=== PATIENT | female | born 1965 | race Hispanic/Latino ===

== ENCOUNTER 2021-07-17 07:22 | Day surgery (SDC) | payer OTHER ==
[2021-07-14 14:13] LABS: BASOPHILS % (AUTO) 0.7 % (0.0-5.0); EOSINOPHILS % (AUTO) 2.3 % (0.0-8.0); HEMATOCRIT 45.1 % (36-48); LYMPHOCYTES % (AUTO) 27.2 % (21.0-51.0); MEAN CORPUSCULAR HEMOGLOBIN 27.6 pg (27.0-33.0); MEAN CORPUSCULAR HGB CONC 31.3 g/dL (32.0-36.0); MEAN CORPUSCULAR VOLUME 88.4 fL (79-99); MONOCYTES % (AUTO) 6.7 % (3.0-13.0); NEUTROPHILS % (AUTO) 62.7 % (40.0-77.0); PLATELET COUNT (AUTO) 429 K/uL (130-400); RED CELL DISTRIBUTION WIDTH 14.1 % (11.0-15.5); WHITE BLOOD COUNT (AUTO) 10.9 K/uL (4.8-10.8)
[2021-07-16 13:02] VITALS: BP 164/78
[2021-07-17] VITALS (17 sets, daily range): BP systolic 140–175; BP diastolic 80–106
[~2021-07-17] VITALS: Ht 157.5 cm; Wt 102.4 kg
[~2021-07-17 07:22] MED LIST: CELE-84 PO; LEVO5TAB13 PO
[2021-07-17] MEDS ORDERED: CALDOLOR 800MG+NS 250ML 250 ML IV ONE (07:38)
[2021-07-17] MEDS ORDERED: L.AC1CAP6 PO (07:50)
[2021-07-17] MEDS ORDERED: CEFAZOLIN SODIUM 1 GM VIAL ONE (08:26)
[2021-07-17] MEDS ORDERED: PROPOFOL 10 MG/ML 20ML VIAL IV ONE (08:34)
[2021-07-17] MEDS ORDERED: LIDOCAINE PF 100MG/5ML (2%) SYRINGE 5ML ONE (08:34)
[2021-07-17] MEDS ORDERED: SUCCINYLCHOLINE 200MG/10ML SYR ONE (08:34)
[2021-07-17] MEDS ORDERED: MIDAZOLAM HCL 1 MG/ML 2ML VIAL ONE (08:34)
[2021-07-17] MEDS ORDERED: FENTANYL CITRATE PF 50 MCG/1 ML 2ML VIAL ONE (08:49)
[2021-07-17] MEDS ORDERED: ONDANSETRON 4MG INJ ONE (08:59)
[2021-07-17] MEDS ORDERED: DEXAMETHASONE SOD PHOSPHATE 4 MG/ML 1ML VIAL ONE (08:59)
[2021-07-17] MEDS ORDERED: CALDOLOR 800MG+NS 250ML 250 ML IV SCH (09:00)
[2021-07-17] MEDS ORDERED: LACTATED RINGERS 1000ML 1,000 ML IV SCH (09:00)
[2021-07-17] MEDS ORDERED: CEFAZOLIN 3GM /D5W 100ML 100 ML IV SCH (09:00)
[2021-07-17] MEDS ORDERED: PHENYLEPHRINE HCL 10 MG/ML 1ML VIAL IV ONE (10:00)
[2021-07-17] MEDS ORDERED: HYDRALAZINE 20MG/ML VIAL ONE (10:41)
== END 2021-07-17 11:50 | disposition home or self-care (01) ==
LOC: DAH 07:22
PROVIDERS: ATTEND Obstetrics & Gynecology
DX: N95.0 Postmenopausal bleeding (principal); Z20.822 Contact with and (suspected) exposure to COVID-19; D25.0 Submucous leiomyoma of uterus; N85.8 Other specified noninflammatory disorders of uterus; I10 Essential (primary) hypertension; K21.9 Gastro-esophageal reflux disease without esophagitis; E66.9 Obesity, unspecified; Z98.51 Tubal ligation status; Z98.890 Other specified postprocedural states; Z79.899 Other long term (current) drug therapy; Z68.41 Body mass index [BMI] 40.0-44.9, adult
CPT/HCPCS: 36415; 58561; 85025; 86850; 86900; 86901; 87635; A4215; A4221; A4222; A4223; A4351; A4355; A4663; A6260; C9803; J0330; J0360; J0690; J1100; J1741 ×2; J2001; J2250; J2370; J2405; J2704; J3010; J7030; J7120